=== PATIENT | female | born 1985 | race Caucasian/White ===

== ENCOUNTER 2018-11-25 16:43 | Inpatient (IN) | payer OTHER, MEDICAID ==
[2018-11-25 18:52] LABS: ADD MAN DIFF? NO
[2018-11-25 18:56] LABS: WHITE BLOOD COUNT 6.9 10^3/ul (4.8-10.8)
[2018-11-25 18:56] LABS: BASOPHILS % 0.6 % (0.0-2.0); EOSINOPHILS # 0.1 10^3/ul (0.0-0.5); EOSINOPHILS % 1.3 % (0.0-7.0); HEMATOCRIT 37.6 % (37.0-47.0); HEMOGLOBIN 12.6 g/dl (12.0-16.0); LYMPHOCYTES # 2.8 10^3/ul (0.8-2.9); LYMPHOCYTES % 40.8 % (15.0-51.0); MEAN CORPUSCULAR HEMOGLOBIN 29.7 pg (29.0-33.0); MEAN CORPUSCULAR HGB CONC 33.5 g/dl (32.0-37.0); MEAN CORPUSCULAR VOLUME 88.7 fl (82.0-101.0); MONOCYTE # 0.4 10^3/ul (0.3-0.9); MONOCYTES % 5.5 % (0.0-11.0); NEUTROPHIL # 3.5 10^3/ul (1.6-7.5); NEUTROPHILS % 51.4 % (39.0-77.0); PLATELET COUNT 242 10^3/UL (140-415); RED BLOOD COUNT 4.24 10^6/ul (4.20-5.40); RED CELL DISTRIBUTION WIDTH 12.8 % (11.5-14.5)
[2018-11-25 19:16] LABS: ALANINE AMINOTRANSFERASE 26 IU/L (13-69); ALBUMIN 3.5 g/dl (3.3-4.9); ALBUMIN/GLOBULIN RATIO 0.94; ALKALINE PHOSPHATASE 112 IU/L (42-121); ANION GAP 7 (5-13); ASPARTATE AMINO TRANSFERASE 32 IU/L (15-46); BILIRUBIN,INDIRECT 0.2 mg/dl (0-1.1); BILIRUBIN,TOTAL 0.2 mg/dl (0.2-1.3); BLOOD UREA NITROGEN 16 mg/dl (7-20); CALCIUM 9.3 mg/dl (8.4-10.2); CARBON DIOXIDE 25 mmol/L (21-31); CHLORIDE 103 mmol/L (97-110); CREATININE 0.66 mg/dl (0.44-1.00); Estimated GFR > 60 mL/min (>60); GLUCOSE 72 mg/dl (70-220); POTASSIUM 4.2 mmol/L (3.5-5.1); SODIUM 135 mmol/L (135-144); TOTAL PROTEIN 7.2 g/dl (6.1-8.1)
[2018-11-25 19:52] LABS: INR 0.84; PROTIME 11.6 Sec (11.9-14.9); PT RATIO 0.9
[2018-11-25 19:53] LABS: PARTIAL THROMBOPLASTIN TIME 28.1 Sec (23.0-35.0)
[2018-11-25 20:32] LABS: ADD UMIC YES; UR ASCORBIC ACID 20 mg/dL (NEGATIVE); UR BILIRUBIN (Dip) NEGATIVE (NEGATIVE); UR BLOOD (Dip) NEGATIVE (NEGATIVE); UR CLARITY CLEAR (CLEAR); UR COLOR YELLOW (YELLOW); UR GLUCOSE (Dip) NEGATIVE (NEGATIVE); UR KETONES (Dip) TRACE mg/dL (NEGATIVE); UR LEUKOCYTE ESTERASE (Dip) NEGATIVE Leu/ul (NEGATIVE); UR MUCUS MODERATE /HPF (NONE SEEN); UR NITRITE (Dip) NEGATIVE (NEGATIVE); UR RBC 0 /HPF (0-5); UR SPECIFIC GRAVITY (Dip) 1.027 (1.003-1.030); UR SQUAMOUS EPITHELIAL CELL FEW /HPF (FEW); UR TOTAL PROTEIN (Dip) 1+ mg/dl (NEGATIVE); UR UROBILINOGEN (Dip) NEGATIVE (NEGATIVE); UR WBC 1 /HPF (0-5)
[2018-11-25] MEDS ORDERED: AL HYDROX/MG HYDROX/SIMETH 30 ML CUP PO (21:00)
[2018-11-25] MEDS ORDERED: ACETAMINOPHEN 325 MG TAB PO (21:00)
[2018-11-25] MEDS: ASPIRIN 81 MG TAB PO (21:59)
[2018-11-25] MEDS: LABETALOL 200 MG TAB PO (22:00)
[2018-11-25] MEDS: NIFEdipine (XL) 30 MG TAB PO (22:00)
[2018-11-26] MEDS: PRENATAL VITAMIN PO (08:21)
[2018-11-26] MEDS: LABETALOL 200 MG TAB PO (08:23)
[2018-11-26] MEDS: ASPIRIN 81 MG TAB PO (08:24)
[2018-11-26] MEDS: FOLIC ACID 0.4 MG TAB GTB (08:24)
[2018-11-26] MEDS: NIFEdipine (XL) 30 MG TAB PO (08:24)
[2018-11-26] MEDS ORDERED: ASPIRIN 81 MG TAB PO (09:00)
[2018-11-26 18:40] LABS: COLLECTION PERIOD 24 hrs
[2018-11-26 18:56] LABS: VOLUME 900 mls
[2018-11-26 18:59] LABS: COLLECTION PERIOD 24 hrs; CREATININE CLEARANCE 124.8 mls/min (84.0-162.0); SCRET 0.66 mg/dl (0.44-1.00); VOLUME 900 ml/24hrs
[2018-11-26] MEDS ORDERED: MAGNESIUM SULFATE 40GM/1000ML 1,000 ML IV (19:30)
[2018-11-26] MEDS ORDERED: CA GLUCONATE (GM) 10% 10ML INJ IV (19:30)
[2018-11-26] MEDS: LABETALOL HCL 20MG INJ IV ×4 (19:54→23:22)
[2018-11-26] MEDS: LACTATED RINGER'S 1,000 ML IV (20:20)
[2018-11-26 20:40] LABS: ALANINE AMINOTRANSFERASE 21 IU/L (13-69); ALBUMIN 2.9 g/dl (3.3-4.9); ALKALINE PHOSPHATASE 104 IU/L (42-121); ANION GAP 4 (5-13); ASPARTATE AMINO TRANSFERASE 24 IU/L (15-46); BILIRUBIN,INDIRECT 0.2 mg/dl (0-1.1); BILIRUBIN,TOTAL 0.2 mg/dl (0.2-1.3); BLOOD UREA NITROGEN 11 mg/dl (7-20); CALCIUM 8.8 mg/dl (8.4-10.2); CARBON DIOXIDE 25 mmol/L (21-31); CHLORIDE 106 mmol/L (97-110); CREATININE 0.53 mg/dl (0.44-1.00); GLUCOSE 98 mg/dl (70-220); LACTATE DEHYDROGENASE 362 IU/L (313-618); PHOSPHORUS 3.7 mg/dl (2.5-4.9); SODIUM 135 mmol/L (135-144); TOTAL PROTEIN 6.1 g/dl (6.1-8.1)
[2018-11-27] MEDS ORDERED: CARBOPROST 250 MCG INJ IM
[2018-11-27] MEDS ORDERED: METHYLERGONOVINE 0.2 MG INJ IM
[2018-11-27] MEDS ORDERED: MISOPROSTOL 200 MCG TAB PR
[2018-11-27] MEDS: LABETALOL 200 MG TAB PO ×3 (00:26→20:22)
[2018-11-27] MEDS: NIFEdipine (XL) 30 MG TAB PO ×3 (00:27→20:22)
[2018-11-27] MEDS: FAMOTIDINE 20 MG INJ IV (00:28)
[2018-11-27] MEDS: CITRIC ACID/NA CITRATE 30 ML CUP PO (00:28)
[2018-11-27] MEDS: METOCLOPRAMIDE 10 MG INJ IV (00:30)
[2018-11-27] MEDS: LACTATED RINGER'S 1,000 ML IV ×4 (00:30→19:00)
[2018-11-27] MEDS ORDERED: morphine SULFATE/PF (10 MG/10 ML) INJ (00:40)
[2018-11-27] MEDS ORDERED: ONDANSETRON 4 MG INJ (01:00)
[2018-11-27] MEDS ORDERED: MEPERIDINE 25 MG INJ IV (01:30)
[2018-11-27] MEDS ORDERED: LABETALOL HCL 20MG INJ IV (01:30)
[2018-11-27] MEDS ORDERED: KETOROLAC 30 MG INJ IV ×2 (01:30)
[2018-11-27] MEDS ORDERED: ONDANSETRON 4 MG INJ IV (01:30)
[2018-11-27] MEDS ORDERED: DIPHENHYDRAMINE 50 MG INJ IV ×2 (01:30)
[2018-11-27] MEDS ORDERED: PROCHLORPERAZINE 10 MG INJ IV (01:30)
[2018-11-27] MEDS ORDERED: NALOXONE (0.4 MG/ML) INJ IV (01:30)
[2018-11-27] MEDS ORDERED: EPHEDrine 25 MG/5 ML SYG IV (01:30)
[2018-11-27] MEDS ORDERED: FENTAnyl 50 MCG/ML VIAL IV (01:30)
[2018-11-27] MEDS ORDERED: ZOLPIDEM 5 MG TAB PO (01:30)
[2018-11-27] MEDS ORDERED: HYDROmorphONE 1 MG/5 ML IV SYRINGE IV ×3 (01:30)
[2018-11-27] MEDS ORDERED: HYDROmorphONE 0.5 MG/0.5 ML SYG IV (01:30)
[2018-11-27] MEDS ORDERED: MIDAZOLAM 1 MG/ML 2 ML INJ (01:38)
[2018-11-27] MEDS ORDERED: OXYTOCIN 30 UNITS/LR 500 ML IV ×2 (01:52)
[2018-11-27] MEDS ORDERED: EPHEDrine 25 MG/5 ML SYG (01:54)
[2018-11-27] MEDS: MAGNESIUM SULFATE 4 GM/100 ML 100 ML IV (02:58)
[2018-11-27] MEDS: OXYTOCIN 30 UNITS/LR 500 ML IV ×2 (03:02→10:48)
[2018-11-27] MEDS: LABETALOL HCL 20MG INJ IV ×4 (04:11→12:16)
[2018-11-27] MEDS: ONDANSETRON 4 MG INJ IV (05:15)
[2018-11-27] MEDS ORDERED: CEFAZOLIN 2 GM/50 ML (PMX) 50 ML IVPB ×2 (06:00)
[2018-11-27] MEDS: CEFAZOLIN 2 GM/50 ML (PMX) 50 ML IVPB ×2 (06:06→13:57)
[2018-11-27] MEDS ORDERED: MAGNESIUM SULFATE 20 GM/500 ML 500 ML IV (07:00)
[2018-11-27] MEDS: MAGNESIUM SULFATE 4 GM/100 ML 100 ML IVPB (07:32)
[2018-11-27] MEDS: MAGNESIUM SULFATE 40GM/1000ML 1,000 ML IV (08:12)
[2018-11-27] MEDS: hydrALAzine 20 MG INJ IV (15:55)
[2018-11-27 16:25] LABS: MAGNESIUM 4.8 mg/dl (1.7-2.5)
[2018-11-27] MEDS: HEPARIN 5,000 UNIT/1 ML VIAL SC (21:00)
[2018-11-28] MEDS: CEFAZOLIN 2 GM/50 ML (PMX) 50 ML IVPB ×4 (00:07→22:59)
[2018-11-28] MEDS: HYDROmorphONE 0.5 MG/0.5 ML SYG IV (00:14)
[2018-11-28 01:22] LABS: MAGNESIUM 4.4 mg/dl (1.7-2.5)
[2018-11-28] MEDS: LACTATED RINGER'S 1,000 ML IV ×3 (03:53→14:54)
[2018-11-28] MEDS: MAGNESIUM SULFATE 40GM/1000ML 1,000 ML IV (05:14)
[2018-11-28 06:02] LABS: ADD MAN DIFF? NO
[2018-11-28 06:19] LABS: BASOPHILS % 0.2 % (0.0-2.0); EOSINOPHILS % 0.4 % (0.0-7.0); HEMATOCRIT 23.9 % (37.0-47.0); LYMPHOCYTES # 2.5 10^3/ul (0.8-2.9); LYMPHOCYTES % 26.6 % (15.0-51.0); MEAN CORPUSCULAR HGB CONC 33.5 g/dl (32.0-37.0); MEAN CORPUSCULAR VOLUME 89.5 fl (82.0-101.0); MONOCYTE # 0.6 10^3/ul (0.3-0.9); MONOCYTES % 6.4 % (0.0-11.0); NEUTROPHIL # 6.3 10^3/ul (1.6-7.5); NEUTROPHILS % 65.9 % (39.0-77.0); PLATELET COUNT 169 10^3/UL (140-415); RED BLOOD COUNT 2.67 10^6/ul (4.20-5.40); RED CELL DISTRIBUTION WIDTH 12.9 % (11.5-14.5)
[2018-11-28 06:19] LABS: WHITE BLOOD COUNT 9.5 10^3/ul (4.8-10.8)
[2018-11-28 06:40] LABS: MAGNESIUM 3.4 mg/dl (1.7-2.5)
[2018-11-28 07:16] LABS: ALANINE AMINOTRANSFERASE 39 IU/L (13-69); ALBUMIN 2.6 g/dl (3.3-4.9); ALBUMIN/GLOBULIN RATIO 0.96; ALKALINE PHOSPHATASE 71 IU/L (42-121); ANION GAP 3 (5-13); ASPARTATE AMINO TRANSFERASE 48 IU/L (15-46); BILIRUBIN,INDIRECT 0.3 mg/dl (0-1.1); BILIRUBIN,TOTAL 0.3 mg/dl (0.2-1.3); BLOOD UREA NITROGEN 8 mg/dl (7-20); CALCIUM 7.5 mg/dl (8.4-10.2); CARBON DIOXIDE 29 mmol/L (21-31); CHLORIDE 100 mmol/L (97-110); CREATININE 0.62 mg/dl (0.44-1.00); Estimated GFR > 60 mL/min (>60); GLUCOSE 82 mg/dl (70-220); POTASSIUM 4.2 mmol/L (3.5-5.1); SODIUM 132 mmol/L (135-144); TOTAL PROTEIN 5.3 g/dl (6.1-8.1)
[2018-11-28] MEDS: PRENATAL VITAMIN PO (09:00)
[2018-11-28] MEDS: FOLIC ACID 0.4 MG TAB GTB (09:00)
[2018-11-28] MEDS: NIFEdipine (XL) 30 MG TAB PO ×2 (09:02→22:16)
[2018-11-28] MEDS: LABETALOL 200 MG TAB PO ×2 (09:03→22:16)
[2018-11-28] MEDS: ASPIRIN 81 MG TAB PO (10:21)
[2018-11-28] MEDS: HEPARIN 5,000 UNIT/1 ML VIAL SC ×2 (10:32→22:49)
[2018-11-28 12:42] LABS: MAGNESIUM 4.7 mg/dl (1.7-2.5)
[2018-11-28 19:22] LABS: MAGNESIUM 2.9 mg/dl (1.7-2.5)
[2018-11-29] MEDS: FOLIC ACID 0.4 MG TAB GTB (08:50)
[2018-11-29] MEDS: ASPIRIN 81 MG TAB PO (08:50)
[2018-11-29] MEDS: PRENATAL VITAMIN PO (08:50)
[2018-11-29] MEDS: LABETALOL 200 MG TAB PO ×2 (08:50→20:38)
[2018-11-29] MEDS: NIFEdipine (XL) 30 MG TAB PO ×2 (08:50→20:38)
[2018-11-29] MEDS: FERROUS GLUCONATE (EC) 325 MG TAB PO ×2 (08:50→20:38)
[2018-11-29] MEDS: HEPARIN 5,000 UNIT/1 ML VIAL SC ×2 (08:58→20:48)
[2018-11-29] MEDS ORDERED: OXYCODONE/ACETAMINOPHEN (5/325) TAB PO ×2 (21:00)
[2018-11-29] MEDS: IBUPROFEN 600 MG TAB PO (23:52)
[2018-11-30] MEDS: IBUPROFEN 600 MG TAB PO ×3 (05:39→18:14)
[2018-11-30] MEDS: FERROUS GLUCONATE (EC) 325 MG TAB PO ×2 (09:08→21:44)
[2018-11-30] MEDS: FOLIC ACID 0.4 MG TAB GTB (09:08)
[2018-11-30] MEDS: NIFEdipine (XL) 30 MG TAB PO ×2 (09:09→21:45)
[2018-11-30] MEDS: PRENATAL VITAMIN PO (09:09)
[2018-11-30] MEDS: ASPIRIN 81 MG TAB PO (09:09)
[2018-11-30] MEDS: LABETALOL 200 MG TAB PO ×2 (09:10→21:45)
[2018-11-30] MEDS: HEPARIN 5,000 UNIT/1 ML VIAL SC ×2 (09:12→21:57)
[2018-11-30] MEDS: SENNA TAB PO (10:38)
[2018-11-30 16:43] LABS: RAPID PLASMA REAGIN NONREACTIVE (NR)
[2018-12-01] MEDS: IBUPROFEN 600 MG TAB PO ×3 (01:02→13:17)
[2018-12-01] MEDS: PRENATAL VITAMIN PO (09:25)
[2018-12-01] MEDS: NIFEdipine (XL) 30 MG TAB PO (09:25)
[2018-12-01] MEDS: LABETALOL 200 MG TAB PO (09:26)
[2018-12-01] MEDS: FOLIC ACID 0.4 MG TAB GTB (09:26)
[2018-12-01] MEDS: FERROUS GLUCONATE (EC) 325 MG TAB PO (09:26)
[2018-12-01] MEDS: ASPIRIN 81 MG TAB PO (09:26)
[2018-12-01] MEDS: HEPARIN 5,000 UNIT/1 ML VIAL SC (09:30)
[2018-12-01] MEDS: DIPHTH/TET/ACEL PERTUSS (ADULT) 0.5 ML VIAL IM* (15:09)
[2018-12-01] MEDS: MEASLES,MUMPS,RUBELLA VACCINE INJ SC* (15:09)
== END 2018-12-01 18:06 | disposition home or self-care (01) | DRG 786 ==
LOC: OBT 16:43 → L-D 11-27 00:37 → PP1 11-29 20:35 → L-D 16:45 → TEL 11-27 17:12 → OBT 20:30 → L-D 20:30
PROC: 10D00Z1 Extraction of Products of Conception, Low, Open Approach (ICD-10-PCS; principal; 2018-11-27)
DX: O10.92 Unspecified pre-existing hypertension complicating childbirth (principal); O60.13X0 Preterm labor second trimester with preterm delivery third trimester, not applicable or unspecified; O99.214 Obesity complicating childbirth; E66.01 Morbid (severe) obesity due to excess calories; Z3A.35 35 weeks gestation of pregnancy; Z37.0 Single live birth
CPT/HCPCS: 80053; 80069; 80076; 81001; 82575; 83615; 83735; 84156; 84560; 85025; 85384; 85610; 85730; 86592; 86850; 86900; 86901; 90715; 99464